=== PATIENT | female | born 2000 | race Hispanic/Latino ===

== ENCOUNTER 2022-04-22 19:18 | Emergency (ER) | payer OTHER ==
[2022-04-22] MEDS ORDERED: ACETAMINOPHEN 500 MG TAB PO ONE (22:50)
[2022-04-22] MEDS ORDERED: IBUPROFEN 600 MG TAB PO ONE (22:50)
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
[2022-04-23 02:00] VITALS: BP 146/91
== END 2022-04-23 02:01 | disposition home or self-care (01) ==
LOC: ED 19:18
DX: S86.912A Strain of unspecified muscle(s) and tendon(s) at lower leg level, left leg, initial encounter (principal); S00.03XA Contusion of scalp, initial encounter; M54.2 Cervicalgia; M54.50 Low back pain, unspecified; M62.838 Other muscle spasm; I10 Essential (primary) hypertension; V89.2XXA Person injured in unspecified motor-vehicle accident, traffic, initial encounter; Y93.89 Activity, other specified; Y92.89 Other specified places as the place of occurrence of the external cause; Y99.8 Other external cause status
CPT/HCPCS: 70450; 72125; 99284